=== PATIENT | male | born 1990 | race Caucasian/White ===

== ENCOUNTER 2018-05-15 11:25 | Emergency (ER) | payer OTHER ==
[2018-05-15 12:22] LABS: Urine Appearance Cloudy; Urine Blood 2+ (Negative); Urine Color Yellow; Urine Ketones Negative (Negative); Urine Protein 2+(100 mg/dL) (Negative); Urine Red Blood Cell 3+(>10/hpf) (Absent); Urine Specific Gravity 1.021 (1.010-1.030); Urine Urobilinogen Negative (Negative); Urine White Blood Cell 3+(>20/hpf) (Absent)
[2018-05-15 16:27] LABS: INR 1.07 (0.77-1.02)
[2018-05-15 16:30] LABS: Hematocrit 43 % (42-52); Hemoglobin 14.1 g/dl (14.0-18.0); Mean Corpuscular HGB Conc 33 g/dl (31-36); Mean Corpuscular Hemoglobin 20 pg (27-31); Mean Corpuscular Volume 62 fL (80-94); Platelet Count 197 10^3/ul (150-450); Red Blood Count 6.91 10^6/ul (4.00-5.40); Red Cell Distribution Width 17 % (10.5-15); White Blood Count 5.1 10^3/ul (3.5-10.8)
[2018-05-15 16:35] LABS: EGFR Non-African American 122.1 (>60)
--- NOTE | 2018-05-15 17:04 | RAD ---
INDICATION: Hematuria COMPARISON: None TECHNIQUE: Longitudinal and transverse scans of the kidneys were obtained. FINDINGS: Kidneys: The kidneys are normal in size and echogenicity. No renal masses, calculi, or hydronephrosis is seen. The right kidney measures 12.2 x 4.3 x 5.1 cm and the left kidney 11.6 x 5.0 x 4.4 cm. Other: None IMPRESSION: NEGATIVE EXAMINATION
[2018-05-15 17:12] LABS: ABS Basophils 0 10^3/ul (0-0.2); ABS Eosinophils 0 10^3/ul (0-0.6); ABS Lymphocytes 1.2 10^3/ul (1.0-4.8); ABS Monocytes 0.4 10^3/ul (0-0.8); ABS Neutrophils 3.5 10^3/ul (1.5-7.7); ABS Nucleated RBC 0 10^3/ul; Eosinophil % 0.6 % (0-6); Lymphocyte % 23.6 % (25-47); Nucleated Red Blood Cells % 0.2
--- NOTE | 2018-05-15 17:28 | ED ---
GI/ HPI - HPI Summary HPI Summary: Patient presents with passing blood clots today. He reports earlier in the day he had dysuria when he passed his first to blood clots. This was followed by a lingering burning sensation when he wasn't urinating. He reports he believes he passed more blood clots this afternoon (but not sure) however they were painless. He denies fever, chills, chest pain, shortness of breath, abdominal pain, flank pain, penile pain, testicular pain or swelling, prostate fullness, nausea, vomiting, diarrhea. He is urinated multiple times while here without pain or difficulty. Denies history of kidney stones, urinary tract infection, bleeding disorders or renal dysfunction. No trauma to the area. Sexually active w/ only, vaginal intercourse. He does not believe she has any vaginal infections as she just gave to their child a couple of weeks ago. - History of Current Complaint Chief Complaint: EDUrogenitalProblems Time Seen by Provider: 05/15/18 15:10 Stated Complaint: BLOOD IN URINE Hx Obtained From: Patient Pain Intensity: 0 - Allergy/Home Medications Allergies/Adverse Reactions: Allergies Allergy/AdvReac Type Severity Reaction Status Date / Time No Known Allergies Allergy Verified 05/15/18 11:41 Home Medications: Home Medications NK [No Home Medications Reported] 05/15/18 [History Confirmed 05/15/18] PMH/Surg Hx/FS Hx/Imm Hx Previously Healthy: Yes Endocrine/Hematology History: Denies: Hx Anticoagulant Therapy, Hx Blood Disorders, Hx Anemia, Hx Unexplained Bleeding, Autoimmune Disease History: Denies: Hx Acute Renal Failure, Hx Benign Prostatic Hyperplasia, Hx Chronic Renal Failure, Hx Dialysis, Hx Kidney Infection, Hx Kidney Stones, Hx Renal Disease Infectious Disease History: No Infectious Disease History: Denies: Traveled Outside the [place] in Last 30 Days - Family History Known Family History: Positive: Other - son- nephrotic syndrome - Social History Lives: With Family Alcohol Use: Occasionally Hx Substance Use: No Substance Use Type: Reports: None Hx Tobacco Use: No Smoking Status (MU): Never Smoked Tobacco Review of Systems Constitutional: Negative Negative: Fever, Chills, Fatigue Cardiovascular: Negative Respiratory: Negative Gastrointestinal: Negative Positive: see HPI Musculoskeletal: Negative Skin: Negative Neurological: Negative Psychological: Normal All Other Systems Reviewed And Are Negative: Yes Physical Exam Triage Information Reviewed: Yes Vital Signs On Initial Exam: Initial Vitals Temp Pulse Resp BP Pulse Ox 97.7 F 70 19 124/86 100 05/15/18 11:38 05/15/18 11:38 05/15/18 11:38 05/15/18 11:38 05/15/18 11:38 Vital Signs Reviewed: Yes Appearance: Positive: Well-Appearing, No Pain Distress, Well-Nourished Skin: Positive: Warm, Skin Color Reflects Adequate Perfusion, Dry Head/Face: Positive: Normal Head/Face Inspection Eyes: Positive: Normal, EOMI, Conjunctiva Clear - anicteric sclera ENT: Positive: Normal ENT inspection, Hearing grossly normal, Pharynx normal - mucosa moist Respiratory/Lung Sounds: Positive: Clear to Auscultation, Breath Sounds Present Cardiovascular: Positive: Normal, RRR Abdomen Description: Positive: Nontender, No Organomegaly, Soft, Guarding - pt reports he's ticklish - flexes but is able to relax for exam. Negative: CVA Tenderness (R), CVA Tenderness (L), Distended, Hepatomegaly Bowel Sounds: Positive: Present Male Genital Exam: Positive: Normal Genitalia. Negative: Epididymal Tenderness , Lesions, Scrotum Tenderness (R), Scrotum Tenderness (L), Testicular Tenderness (R), Testicular Tenderness (L), Urethral Discharge Musculoskeletal: Positive: Normal, Strength/ROM Intact Neurological: Positive: Normal, Sensory/Motor Intact, Alert, Oriented to Person Place, Time, CN Intact II-III Psychiatric: Positive: Normal Diagnostics - Vital Signs Vital Signs Temp Pulse Resp BP Pulse Ox 05/15/18 14:26 97.2 F 82 17 123/72 100 05/15/18 11:38 97.7 F 70 19 124/86 100 - Laboratory Lab Results: Lab Results 05/15/18 05/15/18 05/15/18 Range/Units 11:56 16:06 16:06 WBC 5.1 (3.5-10.8) 10^3/ul RBC 6.91 H (4.00-5.40) 10^6/ul Hgb 14.1 (14.0-18.0) g/dl Hct 43 (42-52) % MCV 62 L (80-94) fL MCH 20 L (27-31) pg MCHC 33 (31-36) g/dl RDW 17 H (10.5-15) % Plt Count 197 (150-450) 10^3/ul MPV 9.0 (7.4-10.4) um3 Neut % (Auto) 67.3 (38-83) % Lymph % (Auto) 23.6 L (25-47) % [place] % (Auto) 7.9 H (0-7) % Eos % (Auto) 0.6 (0-6) % Baso % (Auto) 0.6 (0-2) % Absolute Neuts (auto) 3.5 (1.5-7.7) 10^3/ul Absolute Lymphs (auto) 1.2 (1.0-4.8) 10^3/ul Absolute Monos (auto) 0.4 (0-0.8) 10^3/ul Absolute Eos (auto) 0 (0-0.6) 10^3/ul Absolute Basos (auto) 0 (0-0.2) 10^3/ul Absolute Nucleated RBC 0 10^3/ul Nucleated RBC % 0.2 Microcytosis 2+ Target Cells 1+ Elliptocytes 2+ Acanthocytes (Spur) 1+ Hem Pathologist Commnt Pending INR (Anticoag Therapy) 1.07 H (0.77-1.02) APTT 30.5 (26.0-36.3) seconds Sodium (135-145) mmol/L Potassium (3.5-5.0) mmol/L Chloride (101-111) mmol/L Carbon Dioxide (22-32) mmol/L Anion Gap (2-11) mmol/L BUN (6-24) mg/dL Creatinine (0.67-1.17) mg/dL Est GFR ( Amer) (>60) Est GFR (Non-Af Amer) (>60) BUN/Creatinine Ratio (8-20) Glucose (70-100) mg/dL Lactic Acid (0.5-2.0) mmol/L Calcium (8.6-10.3) mg/dL Total Bilirubin (0.2-1.0) mg/dL AST (13-39) U/L ALT (7-52) U/L Alkaline Phosphatase (34-104) U/L C-Reactive Protein (<8.01) mg/L Total Protein (6.4-8.9) g/dL Albumin (3.2-5.2) g/dL Globulin (2-4) g/dL Albumin/Globulin Ratio (1-3) Urine Color Yellow Urine Appearance Cloudy Urine pH 9.0 (5-9) Ur Specific [place] 1.021 (1.010-1.030) Urine Protein 2+(100 mg/dl) A (Negative) Urine Ketones Negative (Negative) Urine Blood 2+ A (Negative) Urine Nitrate Negative (Negative) Urine Bilirubin Negative (Negative) Urine Urobilinogen Negative (Negative) Ur Leukocyte Esterase 2+ A (Negative) Urine WBC (Auto) 3+(>20/hpf) A (Absent) Urine RBC (Auto) 3+(>10/hpf) A (Absent) Urine Bacteria Absent (Absent) Urine Glucose Negative (Negative) 05/15/18 05/15/18 Range/Units 16:06 16:06 WBC (3.5-10.8) 10^3/ul RBC (4.00-5.40) 10^6/ul Hgb (14.0-18.0) g/dl Hct (42-52) % MCV (80-94) fL MCH (27-31) pg MCHC (31-36) g/dl RDW (10.5-15) % Plt Count (150-450) 10^3/ul MPV (7.4-10.4) um3 Neut % (Auto) (38-83) % Lymph % (Auto) (25-47) % [place] % (Auto) (0-7) % Eos % (Auto) (0-6) % Baso % (Auto) (0-2) % Absolute Neuts (auto) (1.5-7.7) 10^3/ul Absolute Lymphs (auto) (1.0-4.8) 10^3/ul Absolute Monos (auto) (0-0.8) 10^3/ul Absolute Eos (auto) (0-0.6) 10^3/ul Absolute Basos (auto) (0-0.2) 10^3/ul Absolute Nucleated RBC 10^3/ul Nucleated RBC % Microcytosis Target Cells Elliptocytes Acanthocytes (Spur) Hem Pathologist Commnt INR (Anticoag Therapy) (0.77-1.02) APTT (26.0-36.3) seconds Sodium 138 (135-145) mmol/L Potassium 3.8 (3.5-5.0) mmol/L Chloride 101 (101-111) mmol/L Carbon Dioxide 29 (22-32) mmol/L Anion Gap 8 (2-11) mmol/L BUN 11 (6-24) mg/dL Creatinine 0.76 (0.67-1.17) mg/dL Est GFR ( Amer) 147.8 (>60) Est GFR (Non-Af Amer) 122.1 (>60) BUN/Creatinine Ratio 14.5 (8-20) Glucose 130 H (70-100) mg/dL Lactic Acid 1.1 (0.5-2.0) mmol/L Calcium 9.9 (8.6-10.3) mg/dL Total Bilirubin 1.00 (0.2-1.0) mg/dL AST 19 (13-39) U/L ALT 34 (7-52) U/L Alkaline Phosphatase 56 (34-104) U/L C-Reactive Protein 1.22 (<8.01) mg/L Total Protein 7.9 (6.4-8.9) g/dL Albumin 5.0 (3.2-5.2) g/dL Globulin 2.9 (2-4) g/dL Albumin/Globulin Ratio 1.7 (1-3) Urine Color Urine Appearance Urine pH (5-9) Ur Specific [place] (1.010-1.030) Urine Protein (Negative) Urine Ketones (Negative) Urine Blood (Negative) Urine Nitrate (Negative) Urine Bilirubin (Negative) Urine Urobilinogen (Negative) Ur Leukocyte Esterase (Negative) Urine WBC (Auto) (Absent) Urine RBC (Auto) (Absent) Urine Bacteria (Absent) Urine Glucose (Negative) Result Diagrams: 05/15/18 16:06 05/15/18 16:06 Lab Statement: Any lab studies that have been ordered have been reviewed, and results considered in the medical decision making process. GIGU Course/Dx - Course Course Of Treatment: Patient presents with sudden onset dysuria and blood clots earlier today. He does admit to some right-sided flank pain that happened after lifting a heavy box [place] tough to say if this was caused by muscle strain or if he had initiation of a stone moving on the side. Based on the rest of his symptoms however it does seem like he could have passed some very small stones through his urinary tract resulting in his proteinuria, leukouria, and hematuria today. There are no bacterial cells found on his UA and he denies pain currently. His vitals are negative for fever, tachycardia, hypotensive. His CVAs are nontender to palpation. An ultrasound was ordered of the kidneys to rule out obstruction - this scan appears to be without acute findings and so additional testing was not done. Patient's labs are normal otherwise however his CBC shows some abnormal cells including target cells, etc. Discussed with Dr. Trotter who agrees patient may be discharged with close follow-up with PCP. If patient develops danger signs or symptoms to return to the emergency department. - Diagnoses Provider Diagnoses: Dysuria Discharge - Sign-Out/Discharge Documenting (check all that apply): Patient Departure - Discharge Plan Condition: Stable Disposition: HOME Patient Education Materials: Dysuria (ED) Referrals: Care [facility] [Outside] Additional Instructions: It is suspected that you passed a small kidney stone today. This does not appear to be an issues causing obstruction so furtehr testing/treatment are not warranted at this time. Your urine will go to the lab for further testing however and you will receive a call in 2 days with results if an antibiotic is necessary. If in the meantime, you develop pain, return of bloody urine, difficulty urinating, flank pain, fever, chills, return to the ED. Otherwise follow-up with your PCP. It is also important that you follow-up with your PCP to discuss some abnormal lab findings on your CBC. More results will be available in the next few days so scheduling an appointments with your PCP next week is recommended. Call tomorrow to schedule an appointment. If you do not have a PCP, a contact has been provided for you here - [facility]. - Billing Disposition and Condition Condition: STABLE Disposition: Home
[2018-05-15 17:46] VITALS: BP 129/76
== END 2018-05-15 17:45 | disposition home or self-care (01) ==
LOC: ED 11:25
DX: R30.0 Dysuria (principal); R31.9 Hematuria, unspecified; R80.9 Proteinuria, unspecified; R82.99 Other abnormal findings in urine
CPT/HCPCS: 36415; 76775; 80053; 81003; 81015; 83605; 85025; 85060; 85610; 85730; 86140; 87086; 87491; 87591; 99283